=== PATIENT | male | born 1995 | race Caucasian/White ===

== ENCOUNTER 2016-12-21 06:55 | Day surgery (SDC) | payer OTHER ==
[2016-12-17 14:05] VITALS: BMI 28.5
[2016-12-21] MEDS ORDERED: BUPIVACAINE HCL/EPINEPHRINE/PF 30 ML VIAL IJ ONE (07:23)
[2016-12-21] MEDS ORDERED: ONDANSETRON 4 MG/2 ML VIAL ONE (08:02)
[2016-12-21] MEDS ORDERED: DEXAMETHASONE SOD PHOSPHATE 4 MG/1 ML VIAL ONE (08:02)
[2016-12-21] MEDS ORDERED: MIDAZOLAM HCL 2 MG/2 ML SINGLE DOSE VIAL ONE (08:03)
[2016-12-21] MEDS ORDERED: PROPOFOL 20 ML ONE (08:03)
[2016-12-21] MEDS ORDERED: BUPIVACAINE 0.25% /EPI 1:200,000 10 ML VIAL INF ONE (09:25)
[2016-12-21] MEDS ORDERED: oxyCODONE HCL 5 MG TABLET PO PRN ×4 (09:54→10:13)
[2016-12-21] MEDS ORDERED: ONDANSETRON 4 MG/2 ML VIAL IVPUSH PRN ×2 (09:54→10:13)
[2016-12-21] MEDS ORDERED: LACTATED RINGERS SOLUTION 1,000 ML IV SCH ×2 (10:00→10:15)
--- NOTE | 2016-12-21 10:10 | OP ---
Operative Note - Note: Operative Date: 12/21/16 Pre-Operative Diagnosis: Left knee lateral meniscus tear Operation: LKA, inside-out lateral meniscus repair Post-Operative Diagnosis: Same as Pre-op Surgeon: Matthieu Amato Anesthesiologist/DOWEL POINTER: Williams Cabrales Anesthesia: General Operative Report Dictated: Yes
--- NOTE | 2016-12-21 10:10 | DS ---
Physical Examination Vital Signs: Vital Signs Temperature 98.0 F 12/21/16 07:21 Pulse Rate 74 12/21/16 07:21 Respiratory Rate 16 12/21/16 07:21 Blood Pressure 125/71 12/21/16 07:21 O2 Sat by Pulse Oximetry (%) 100 12/21/16 07:26 Discharge Summary Reason For Visit: LATERAL MENISCAL TEAR, LEFT KNEE Condition: Good - Instructions Diet, Activity, Other Instructions: Post Operative Instructions: Knee Arthroscopy Dr Matthieu Amato 1. Pain following an arthroscopy is variable. Some patients will have more pain than others. You have been provided with a prescription for medication that contains a narcotic. You are not allowed to drive while on this medication. You should NOT take Tylenol (Acetaminophen) when taking the pain medication ( it will result in an overdose). 2. You should are allowed to remove the bandages and shower in 48 hours unless directed otherwise. You are not allowed to bathe or go swimming until the sutures are removed. Put band-aids on the sutures after your shower and do not put any creams or lotions over the incisions. 3. You are NOT allowed to weight on the leg or bend your knee. 4. Apply ice to the knee for 15 min every hour or so. You may continue this for as many days as you like. 5. Please call the office to schedule a visit to have your sutures removed. 6. If for any reason you believe you may have an infection or are concerned, please feel free to call me. I can be reached through our office number 24 hours a day. 7. Please call our office with any questions; we will review the surgical findings during your post operative visit. Disposition: HOME - Home Medications Comprehensive Discharge Medication List: Ambulatory Orders NK [No Known Home Medication] 12/17/16
[2016-12-21] MEDS ORDERED: ACETAMINOPHEN 325 MG TABLET (FP) PO PRN (10:13)
[2016-12-21] MEDS ORDERED: PROMETHAZINE HCL 25 MG/1 ML VIAL IVPUSH PRN (10:13)
[2016-12-21] MEDS ORDERED: oxyCODONE HCL 5 MG TABLET ONE ×2 (10:43→11:09)
[2016-12-21 11:06] VITALS: TEMP 98
[2016-12-21 11:29] VITALS: PULSE 61
[2016-12-21 11:48] VITALS: BP 126/76
== END 2016-12-21 12:00 | disposition home or self-care (01) ==
LOC: FASU 06:55
PROVIDERS: ATTEND Orthopaedic Surgery
PROC: 3E0U3GC Introduction of Other Therapeutic Substance into Joints, Percutaneous Approach (ICD-10-PCS; 2016-12-21)
PROC: 0SBD4ZZ Excision of Left Knee Joint, Percutaneous Endoscopic Approach (ICD-10-PCS; principal; 2016-12-21 09:04)
DX: S83.282A Other tear of lateral meniscus, current injury, left knee, initial encounter (principal); X58.XXXA Exposure to other specified factors, initial encounter; Y93.9 Activity, unspecified; Y92.9 Unspecified place or not applicable
CPT/HCPCS: 0232T; 29881; 94760